=== PATIENT | male | born 1940 | race Caucasian/White ===

== ENCOUNTER → 2019-03-08 10:32 | Outpatient (CLI) | payer MEDICARE, OTHER, SELFPAY ==
--- NOTE | 2019-03-08 | DI.RAD.S_ITS ---
PROCEDURE: XR CHEST 2V INDICATIONS: Atherosclerotic heart disease of [place] coronary artery with TECHNIQUE: 2 views of the chest were acquired. COMPARISON: None. FINDINGS: Surgical changes and devices: None. Lungs and pleura: Lungs are abnormal with an interstitial prominence suggestive of prior smoking history. There is asymmetric increased radiodensity at the middle and lower thirds of the left hilum area, possibly a mass. No pleural effusions or pneumothorax. Mediastinum: Mediastinal contours are normal. Heart size is normal. Bones and chest wall: No suspicious bony abnormalities. Soft tissues appear unremarkable. IMPRESSION: Reduced inspiratory volume, interstitial prominence perhaps reflects a long-standing smoking history. Possible mass lesion causing increased focal radiodensity superimposed on the middle and lower thirds of the left hilum and mediastinal margin. No old comparison films are available for review and they would be very helpful if they exist to obtain for review unless CT scan at this time is clinically chosen for followup. Dictated by: Poli De La Cruz M.D. on 03/08/2019 at 11:05 Approved by: Poli De La Cruz M.D. on 03/08/2019 at 11:06
== END ==
PROVIDERS: PCP Internal Medicine; Visit Provider Internal Medicine
DX: I25.10 Atherosclerotic heart disease of native coronary artery without angina pectoris (principal)
CPT/HCPCS: 71046

== ENCOUNTER → 2019-03-14 10:54 | Outpatient (CLI) | payer MEDICARE, OTHER, SELFPAY ==
--- NOTE | 2019-03-14 11:35 | DI.CT.S_ITS ---
PROCEDURE: CT CHEST WO CON INDICATIONS: Abnormal findings on diagnostic imaging TECHNIQUE: Noncontrast 5 mm thick sections acquired from the pulmonary apices to the posterior costophrenic angles. 7 mm thick coronal and sagittal MIP reformats were then acquired. For radiation dose reduction, the following was used: automated exposure control, adjustment of mA and/or kV according to patient size. COMPARISON: [facility], , XR CHEST 2V, 03/08/2019, 10:38. FINDINGS: Image quality: Excellent. Lungs and pleura: Focal interstitial prominence with pleural irregularity can be seen involving the medial lingula. Mild bronchiectasis can be seen at this site. There is also a prominent pericardial fat-pad seen within this region. No pulmonary nodules or suspicious mass lesions are detected. No pleural effusions or pneumothorax. Central and peripheral airways are patent and normal in caliber. Mediastinum: Heart size is normal. Coronary artery calcifications are seen. No pericardial effusion. No mediastinal adenopathy by size criteria. Thoracic aorta and central pulmonary arteries are normal in size. Esophagus is normal in caliber. No hiatal hernia. Bones and chest wall: No suspicious bony lesions. Age-appropriate bony degenerative changes are seen. Accentuated thoracic kyphosis is seen. No vertebral body compression fractures. No axillary or supraclavicular adenopathy by size criteria. Thyroid gland demonstrates no significant noncontrast abnormality. Abdomen: Visualized upper abdominal solid organs and bowel loops appear normal in the absence of contrast. IMPRESSION: Focal interstitial prominence with bronchiectasis can be seen involving the medial lingula, without mass lesions or suspicious pulmonary nodules. Prominent left pericardial fat pad. Incidental note is made of: Coronary artery calcification Dictated by: Nir Arriola M.D. on 03/14/2019 at 10:46 Approved by: Nir Arriola M.D. on 03/14/2019 at 10:49
== END ==
PROVIDERS: PCP Internal Medicine; Visit Provider Internal Medicine
DX: R93.89 Abnormal findings on diagnostic imaging of other specified body structures (principal); J47.9 Bronchiectasis, uncomplicated; I25.10 Atherosclerotic heart disease of native coronary artery without angina pectoris; E65 Localized adiposity
CPT/HCPCS: 71250

== ENCOUNTER → 2020-06-12 14:55 | Outpatient (ROUT) | payer MEDICARE, OTHER, SELFPAY ==
[2020-06-12 15:48] LABS: Hematocrit 36.8 % (41-53); Hemoglobin 12.2 g/dL (13.5-17.5); Mean Corpuscular HGB Conc 33.2 % (30-36); Mean Corpuscular Hemoglobin 29.1 PG (26-34); Mean Corpuscular Volume 87.7 fL (80-100); Platelet Count 162 X10^3/uL (150-400); Red Cell Distribution Width 14.8 % (11.6-14.8); White Blood Cell Count 5.3 X10^3/uL (4.5-11.0)
[2020-06-12 16:02] LABS: Neutrophils Absolute Manual 3339 /uL (3000-5900); RBC Morphology Normal Morphology; Total Cells Counted 100
[2020-06-12 16:33] LABS: Aspartate Aminotransferase 22 IU/L (17-59); BUN Creatinine Ratio 18.8 (6-22); Blood Urea Nitrogen 28 mg/dL (9-20); Calcium 8.7 mg/dL (8.4-10.2); Carbon Dioxide 23 mmol/L (22-32); Chloride 105 mmol/L (98-107); Cholesterol 106 mg/dL (140-199); Estimated Glomerular Filt Rate 45.3 mL/min (>60); Glucose 84 mg/dL (80-110); HDL Cholesterol 45 mg/dL (40-60); HEMOLYSIS < 15 (0-50); LDL Cholesterol Calculated 38 mg/dL (<100); Potassium 4.7 mmol/L (3.4-5.1); Sodium 137 mmol/L (137-145); Triglycerides 115 mg/dL (35-150)
== END ==
PROVIDERS: PCP Internal Medicine; Visit Provider Internal Medicine
DX: N18.9 Chronic kidney disease, unspecified (principal); I10 Essential (primary) hypertension; E78.2 Mixed hyperlipidemia
CPT/HCPCS: 80048; 80061; 84450; 85025

== ENCOUNTER → 2020-12-11 14:53 | Outpatient (ROUT) | payer MEDICARE, OTHER, SELFPAY ==
[2020-12-11 15:11] LABS: Add Manual Diff / Slide Review NO; Basophils Absolute Auto 100 /uL (0-100); Basophils Percent Auto 0.9 % (0-2); Eosinophils Absolute Auto 0 /uL (0-450); Hematocrit 37.2 % (41-53); Hemoglobin 12.6 g/dL (13.5-17.5); Lymphocytes Absolute Auto 1500 /uL (1100-4500); Lymphocytes Percent Auto 21.9 % (25-40); Mean Corpuscular HGB Conc 33.7 % (30-36); Mean Corpuscular Hemoglobin 28.9 PG (26-34); Mean Corpuscular Volume 85.8 fL (80-100); Monocytes Absolute Auto 500 /uL (0-900); Monocytes Percent Auto 7.4 % (3-14); Neutrophils Absolute Auto 4900 /uL (1500-7000); Neutrophils Percent Auto 69.8 % (50-75); Platelet Count 236 X10^3/uL (150-400); Red Blood Cell Count 4.34 X10^6/uL (4.5-5.9); Red Cell Distribution Width 15.4 % (11.6-14.8)
[2020-12-11 15:22] LABS: HEMOLYSIS < 15 (0-50); Iron 71 ug/dL (49-181)
[2020-12-11 15:25] LABS: BUN Creatinine Ratio 21.4 (6-22); Blood Urea Nitrogen 27 mg/dL (9-20); Calcium 8.8 mg/dL (8.4-10.2); Carbon Dioxide 24 mmol/L (22-32); Chloride 104 mmol/L (98-107); Cholesterol 109 mg/dL (140-199); Estimated Glomerular Filt Rate 54.9 mL/min (>60); Glucose 87 mg/dL (80-110); HDL Cholesterol 39 mg/dL (40-60); HEMOLYSIS < 15 (0-50); LDL Cholesterol Calculated 48 mg/dL (<100); Phosphorous 2.8 mg/dL (2.3-3.7); Potassium 4.9 mmol/L (3.4-5.1); Sodium 136 mmol/L (137-145); Triglycerides 110 mg/dL (35-150)
[2020-12-11 15:29] LABS: Hemoglobin A1C% w Est Avg Glu 6.1 % (4.0-6.0)
[2020-12-11 15:34] LABS: Percent Iron Saturation 21 % (20-50); Total Iron Binding Capacity 339 ug/dL (261-462); Transferrin 254 mg/dL (206-381)
[2020-12-11 15:59] LABS: Ferritin 25 ng/mL (18-464)
[2020-12-12 08:10] LABS: Parathyroid Hormone Int 53 pg/mL (15-65)
== END ==
PROVIDERS: PCP Internal Medicine; Visit Provider Internal Medicine
DX: N18.30 Chronic kidney disease, stage 3 unspecified (principal); E08.8 Diabetes mellitus due to underlying condition with unspecified complications
CPT/HCPCS: 80048; 80061; 82728; 83036; 83540; 83550; 83970; 84100; 85025

== ENCOUNTER → 2022-09-07 16:47 | Outpatient (CLI) | payer MEDICARE, OTHER, SELFPAY ==
[2022-09-07 17:37] LABS: Hematocrit 38.5 % (41-53); Hemoglobin 12.6 g/dL (13.5-17.5); Mean Corpuscular HGB Conc 32.8 % (30-36); Mean Corpuscular Hemoglobin 28.7 PG (26-34); Mean Corpuscular Volume 87.6 fL (80-100); Platelet Count 235 X10^3/uL (150-400); Red Cell Distribution Width 15.3 % (11.6-14.8); White Blood Cell Count 6.3 X10^3/uL (4.5-11.0)
[2022-09-07 18:14] LABS: Alanine Aminotransferase 19 IU/L (<50); Albumin Globulin Ratio 1.2 (1.0-2.8); Alkaline Phosphatase 60 U/L (38-126); Aspartate Aminotransferase 25 IU/L (17-59); BUN Creatinine Ratio 17.4 (6-22); Bilirubin Total 0.3 mg/dL (0.2-1.3); Blood Urea Nitrogen 27 mg/dL (9-20); Calcium 8.8 mg/dL (8.4-10.2); Carbon Dioxide 25 mmol/L (22-32); Chloride 105 mmol/L (98-107); Cholesterol 136 mg/dL (140-199); Estimated Glomerular Filt Rate 44 mL/min (>60); Globulin 3.3 g/dL (1.7-4.1); Glucose 82 mg/dL (80-110); HDL Cholesterol 39 mg/dL (40-60); HEMOLYSIS < 15 (0-50); Hemoglobin A1C% w Est Avg Glu 6.1 % (4.0-6.0); LDL Cholesterol Calculated 74 mg/dL (<100); Potassium 4.6 mmol/L (3.4-5.1); Sodium 138 mmol/L (137-145); Total Protein 7.3 g/dL (6.3-8.2); Triglycerides 113 mg/dL (35-150)
[2022-09-07 18:51] LABS: Creatinine Urine Random 304.5 mg/dL
[2022-09-07 18:56] LABS: Microalbumi Creatinin Ratio Ur 10.1 ug/mg CR (<30); Microalbumin Urine Random 3.1 mg/dL (0-1.6)
== END ==
PROVIDERS: PCP Internal Medicine; Referring Provider Internal Medicine; Visit Provider Internal Medicine
DX: E11.21 Type 2 diabetes mellitus with diabetic nephropathy (principal); E78.2 Mixed hyperlipidemia; I10 Essential (primary) hypertension; I25.10 Atherosclerotic heart disease of native coronary artery without angina pectoris; N18.31 Chronic kidney disease, stage 3a
CPT/HCPCS: 36415; 80053; 80061; 82043; 82570; 83036; 84443; 85027

== ENCOUNTER → 2022-12-10 10:48 | Outpatient (CLI) | payer MEDICARE, OTHER, SELFPAY ==
[2022-12-10 12:02] LABS: Hematocrit 36.5 % (41-53); Hemoglobin 12.3 g/dL (13.5-17.5); Mean Corpuscular HGB Conc 33.6 % (30-36); Mean Corpuscular Volume 86.1 fL (80-100); Platelet Count 192 X10^3/uL (150-400); Red Blood Cell Count 4.24 X10^6/uL (4.5-5.9); Red Cell Distribution Width 14.1 % (11.6-14.8)
[2022-12-10 12:12] LABS: BUN Creatinine Ratio 14.6 (6-22); Blood Urea Nitrogen 21 mg/dL (9-20); Calcium 8.6 mg/dL (8.4-10.2); Carbon Dioxide 26 mmol/L (22-32); Chloride 105 mmol/L (98-107); Estimated Glomerular Filt Rate 48 mL/min (>60); Glucose 81 mg/dL (80-110); HEMOLYSIS < 15 (0-50); Potassium 5.1 mmol/L (3.4-5.1); Sodium 137 mmol/L (137-145)
[2022-12-10 12:14] LABS: Hemoglobin A1C% w Est Avg Glu 5.9 % (4.0-6.0)
== END ==
PROVIDERS: PCP Internal Medicine; Referring Provider Internal Medicine; Visit Provider Internal Medicine
DX: E11.21 Type 2 diabetes mellitus with diabetic nephropathy (principal); I10 Essential (primary) hypertension; N18.31 Chronic kidney disease, stage 3a
CPT/HCPCS: 36415; 80048; 83036; 85027

== ENCOUNTER → 2023-09-15 13:26 | Outpatient (CLI) | payer MEDICARE, OTHER, SELFPAY ==
[2023-09-15 17:30] LABS: Creatinine Urine Random 138.1 mg/dL
[2023-09-15 17:45] LABS: Microalbumin Urine Random < 0.6 mg/dL (0-1.6)
[2023-09-15 20:21] LABS: Aspartate Aminotransferase 25 IU/L (17-59); BUN Creatinine Ratio 15.9 (6-22); Blood Urea Nitrogen 25 mg/dL (9-20); Calcium 9.3 mg/dL (8.4-10.2); Carbon Dioxide 26 mmol/L (22-32); Chloride 103 mmol/L (98-107); Cholesterol 120 mg/dL (140-199); Estimated Glomerular Filt Rate 43 mL/min (>60); Glucose 96 mg/dL (80-110); HDL Cholesterol 39 mg/dL (40-60); HEMOLYSIS < 15 (0-50); LDL Cholesterol Calculated 61 mg/dL (<100); Potassium 4.9 mmol/L (3.4-5.1); Sodium 136 mmol/L (137-145); Triglycerides 101 mg/dL (35-150)
== END ==
PROVIDERS: PCP Internal Medicine; Referring Provider Internal Medicine; Visit Provider Internal Medicine
DX: I25.10 Atherosclerotic heart disease of native coronary artery without angina pectoris (principal); E11.21 Type 2 diabetes mellitus with diabetic nephropathy; N18.31 Chronic kidney disease, stage 3a
CPT/HCPCS: 36415; 80048; 80061; 82043; 82570; 83036; 84450

== ENCOUNTER 2023-09-21 15:04 | Emergency (ER) | payer MEDICARE, OTHER, SELFPAY ==
[2023-09-21] VITALS (33 sets, daily range): BP systolic 159–235; BP diastolic 62–95; PULSE 35–75; RESP 13–36; TEMP 36.3; O2SAT 95–98; BMI 24.3
--- NOTE | 2023-09-21 15:09 | DI.RAD.S_ITS ---
PROCEDURE: XR CHEST 1V INDICATIONS: heart block TECHNIQUE: One view of the chest was acquired. COMPARISON: [facility], CR, XR CHEST 2V, 03/08/2019, 10:38. FINDINGS: Surgical changes and devices: None. Lungs and pleura: There is moderate diffuse reticulonodular pulmonary opacity. No pleural effusions or pneumothorax. Mediastinum: Mediastinal contours appear normal. Heart size is enlarged. Bones and chest wall: No suspicious bony lesions. Overlying soft tissues appear unremarkable. IMPRESSION: Moderate bilateral edema versus pneumonia. Dictated by: Concepcion Lion M.D. on 09/21/2023 at 16:17 Approved by: Concepcion Lion M.D. on 09/21/2023 at 16:18
[2023-09-21 15:28] LABS: Add Manual Diff / Slide Review NO; Basophils Absolute Auto 0 /uL (0-100); Basophils Percent Auto 0.7 % (0-2); Eosinophils Absolute Auto 0 /uL (0-450); Eosinophils Percent Auto 0.1 % (2-4); Hematocrit 39.1 % (41-53); Lymphocytes Absolute Auto 1400 /uL (1100-4500); Lymphocytes Percent Auto 21.2 % (25-40); Mean Corpuscular HGB Conc 33.4 % (30-36); Mean Corpuscular Hemoglobin 29.5 PG (26-34); Mean Corpuscular Volume 88.2 fL (80-100); Monocytes Absolute Auto 500 /uL (0-900); Monocytes Percent Auto 7.2 % (3-14); Neutrophils Absolute Auto 4600 /uL (1500-7000); Neutrophils Percent Auto 70.8 % (50-75); Platelet Count 199 X10^3/uL (150-400); Red Blood Cell Count 4.43 X10^6/uL (4.5-5.9); Red Cell Distribution Width 14.2 % (11.6-14.8); White Blood Cell Count 6.5 X10^3/uL (4.5-11.0)
--- NOTE | 2023-09-21 15:30 | PC.NURSE ---
Pt sent from primary office of 3rd degree heart block, lowest reading on monitor is 37. Pt denies any symptoms of low heart rate, Denies dizziness/SOB/ Chest pain. Pt is A&Ox4
--- NOTE | 2023-09-21 15:33 | ED_ITS ---
HPI - General Adult <Ana Paula Tracy DO - Last Filed: 10/01/23 07:33> General Chief complaint: Arrhythmia/Palpitations Stated complaint: third degree complete heart block per primary care Time Seen by Provider: 09/21/23 15:09 Source: patient and other Mode of arrival: Wheelchair History of Present Illness HPI narrative: This is a 83-year-old male with history of hypertension, diabetes, dyslipidemia, known heart block chronic kidney disease stage IIIA with complaint of third- degree heart block. Patient states he does not have any symptoms he has been told he has a low heartbeat for a long time and has been told by his physician at some point he would probably likely need a pacemaker. He would a regular follow-up appointment today with his primary care they had an EKG and was found to be in what appears to be third-degree heart block with patient's primary care Dr. Pool. He spoke with Dr. Saldivar with electrophysiology who asked patient to come to the ER for evaluation and likely transfer for pacemaker. Patient does not know the names of all his medications but states he does take them regularly. He states he is never had any cardiac interventions other than quality assurance monitor chassis. He is never had heart caths, ablations. States prior surgeries include knee surgery and back surgery. No known drug allergies. No tobacco, no alcohol, no recreational drugs. He is accompanied by his . He is DNR/DNI with limited interventions. He states he would be open to being paced for a brief period of time if necessary. Related Data Previous Rx's Medication Instructions Recorded cholecalciferol (vitamin D3) 50 50 mcg PO DAILY #1 cap 09/11/22 mcg (2,000 unit) capsule lisinopril 20 mg tablet 20 mg PO DAILY #90 tabs 09/11/22 vitamin B complex (B 1 tab PO DAILY #1 tab 09/11/22 Complex-Vitamin B12 tablet) aspirin 81 mg tablet,delayed 81 mg PO DAILY #90 tabs 04/21/23 release hydrochlorothiazide 25 mg tablet 25 mg PO DAILY #90 tabs 06/07/23 metformin 500 mg tablet 500 mg PO BID #180 tabs 06/07/23 simvastatin 40 mg tablet 40 mg PO DAILY #90 tabs 06/07/23 terazosin 2 mg capsule 2 mg PO DAILY #90 caps 06/07/23 amlodipine 5 mg tablet 5 mg PO DAILY #90 tabs 09/27/23 Allergies Allergy/AdvReac Type Severity Reaction Status Date / Time No Known Drug Allergies Allergy Verified 09/27/23 09:17 Review of Systems <Ana Paula Tracy DO - Last Filed: 10/01/23 07:33> Review of Systems ROS Unobtainable: All systems reviewed & are unremarkable except as noted in HPI and below Patient History <Ana Paula Tracy DO - Last Filed: 10/01/23 07:33> Medical History (Updated 09/27/23 @ 09:51 by Migel Pool MD) Bradycardia Coronary artery disease BPH w urinary obs/LUTS Stage 3a chronic kidney disease (CKD) Mixed hyperlipidemia Essential hypertension Type 2 diabetes mellitus with diabetic nephropathy Surgical History (Updated 09/27/23 @ 09:51 by Migel Pool MD) Status post biventricular pacemaker Social History details: (Jonah), retired [place] Smoking Status: Never smoker Smoking Status: Never smoker Substance Use Type: does not use Exam <Ana Paula Tracy DO - Last Filed: 10/01/23 07:33> Narrative Exam Narrative: GENERAL: Alert and oriented x three, alert, well-appearing elderly male in no mild distress. HEENT: Head normocephalic, atraumatic, EOMI, pupils reactive, face symmetric, moist mucous membranes NECK: Supple, full range of motion CARDIOVASCULAR: Bradycardic but regular rate and rhythm without murmurs, rubs or gallops. No JVD. No swelling bilateral lower extremities. RESPIRATORY: Breath sounds equal bilaterally, no wheezes rales or rhonchi. ABDOMEN: Soft, nontender. Normoactive bowel sounds all 4 quadrants. No guarding or rebound, rigidity, no mass : No CVA tenderness EXTREMITIES: Normal range of motion, no clubbing or edema. Neurovascularly intact NEUROLOGICAL: Cranial nerves II through XII grossly intact. Moving all extremities SKIN: Warm, dry, no petechiae, no rashes or lesions. Initial Vital Signs Initial Vital Signs: Vital Signs Temperature 97.3 F L 09/21/23 15:06 Pulse Rate 41 L 09/21/23 15:06 Respiratory Rate 16 09/21/23 15:06 Blood Pressure 186/62 H 09/21/23 15:06 Pulse Oximetry 97 09/21/23 15:06 Oxygen Delivery Method Room Air 09/21/23 15:06 <Baltazar Bernal, DO - Last Filed: 09/21/23 23:07> Initial Vital Signs Initial Vital Signs: Vital Signs Temperature 97.3 F L 09/21/23 15:06 Pulse Rate 41 L 09/21/23 15:06 Respiratory Rate 16 09/21/23 15:06 Blood Pressure 186/62 H 09/21/23 15:06 Pulse Oximetry 97 09/21/23 15:06 Oxygen Delivery Method Room Air 09/21/23 15:06 Course <Ana Paula Tracy, DO - Last Filed: 10/01/23 07:33> Orders Ordered: Discontinued Medications Magnesium Sulfate (Magnesium Sulfate) 2 gm in 50 mls @ 150 mls/hr IV NOW ONE Stop: 09/21/23 16:02 Last Infusion: 09/21/23 16:27 Dose: Infused Documented By: SANDEEP Co-signed By: ROMEO Admin: 09/21/23 15:51 Dose: 150 mls/hr Documented By: SANDEEP Co-signed By: ANTONIO Vital Signs Vital signs: Vital Signs - 8 hr 09/21/23 15:06 09/21/23 15:11 09/21/23 15:30 Temperature 97.3 F L Pulse Rate 41 L 42 L 40 L Respiratory Rate 16 23 32 H Blood Pressure 186/62 H Pulse Oximetry 97 97 97 Oxygen Delivery Method Room Air 09/21/23 15:31 09/21/23 15:31 09/21/23 16:00 Temperature Pulse Rate 37 L 35 L Respiratory Rate 20 21 Blood Pressure 235/95 H Pulse Oximetry 97 97 Oxygen Delivery Method 09/21/23 16:01 09/21/23 16:01 09/21/23 16:30 Temperature Pulse Rate 35 L Respiratory Rate 25 H 24 Blood Pressure 208/78 H Pulse Oximetry 96 97 Oxygen Delivery Method 09/21/23 16:31 09/21/23 16:31 09/21/23 17:00 Temperature Pulse Rate Respiratory Rate 18 Blood Pressure 194/80 H Pulse Oximetry 98 97 Oxygen Delivery Method 09/21/23 17:01 09/21/23 17:01 09/21/23 17:30 Temperature Pulse Rate 38 L Respiratory Rate 16 25 H Blood Pressure 209/86 H Pulse Oximetry 97 98 Oxygen Delivery Method 09/21/23 17:31 09/21/23 17:31 09/21/23 18:00 Temperature Pulse Rate 37 L 38 L Respiratory Rate 24 27 H Blood Pressure 214/89 H Pulse Oximetry 98 97 Oxygen Delivery Method 09/21/23 18:01 09/21/23 18:01 09/21/23 18:30 Temperature Pulse Rate 36 L 39 L Respiratory Rate 26 H 17 Blood Pressure 193/79 H Pulse Oximetry 96 97 Oxygen Delivery Method 09/21/23 19:00 09/21/23 19:02 09/21/23 19:02 Temperature Pulse Rate 40 L 39 L Respiratory Rate 23 23 Blood Pressure 159/77 H Pulse Oximetry 97 96 Oxygen Delivery Method 09/21/23 19:30 09/21/23 19:31 09/21/23 19:31 Temperature Pulse Rate 37 L 40 L Respiratory Rate 22 23 Blood Pressure 199/86 H Pulse Oximetry 96 95 Oxygen Delivery Method Room Air 09/21/23 20:00 09/21/23 20:01 09/21/23 20:01 Temperature Pulse Rate 36 L 35 L Respiratory Rate 15 13 Blood Pressure 168/75 H Pulse Oximetry Oxygen Delivery Method 09/21/23 20:30 09/21/23 20:31 09/21/23 20:31 Temperature Pulse Rate 36 L 35 L Respiratory Rate 20 20 Blood Pressure 216/89 H Pulse Oximetry Oxygen Delivery Method 09/21/23 21:00 09/21/23 21:01 09/21/23 21:01 Temperature Pulse Rate 38 L 40 L Respiratory Rate 31 H 36 H Blood Pressure 199/89 H Pulse Oximetry Oxygen Delivery Method <Baltazar Bernal, - Last Filed: 09/21/23 23:07> Orders Ordered: Discontinued Medications Magnesium Sulfate (Magnesium Sulfate) 2 gm in 50 mls @ 150 mls/hr IV NOW ONE Stop: 09/21/23 16:02 Last Infusion: 09/21/23 16:27 Dose: Infused Documented By: SANDEEP Co-signed By: ROMEO Admin: 09/21/23 15:51 Dose: 150 mls/hr Documented By: SANDEEP Co-signed By: ANTONIO Vital Signs Vital signs: Vital Signs - 8 hr 09/21/23 15:06 09/21/23 15:11 09/21/23 15:30 Temperature 97.3 F L Pulse Rate 41 L 42 L 40 L Respiratory Rate 16 23 32 H Blood Pressure 186/62 H Pulse Oximetry 97 97 97 Oxygen Delivery Method Room Air 09/21/23 15:31 09/21/23 15:31 09/21/23 16:00 Temperature Pulse Rate 37 L 35 L Respiratory Rate 20 21 Blood Pressure 235/95 H Pulse Oximetry 97 97 Oxygen Delivery Method 09/21/23 16:01 09/21/23 16:01 09/21/23 16:30 Temperature Pulse Rate 35 L Respiratory Rate 25 H 24 Blood Pressure 208/78 H Pulse Oximetry 96 97 Oxygen Delivery Method 09/21/23 16:31 09/21/23 16:31 09/21/23 17:00 Temperature Pulse Rate Respiratory Rate 18 Blood Pressure 194/80 H Pulse Oximetry 98 97 Oxygen Delivery Method 09/21/23 17:01 09/21/23 17:01 09/21/23 17:30 Temperature Pulse Rate 38 L Respiratory Rate 16 25 H Blood Pressure 209/86 H Pulse Oximetry 97 98 Oxygen Delivery Method 09/21/23 17:31 09/21/23 17:31 09/21/23 18:00 Temperature Pulse Rate 37 L 38 L Respiratory Rate 24 27 H Blood Pressure 214/89 H Pulse Oximetry 98 97 Oxygen Delivery Method 09/21/23 18:01 09/21/23 18:01 09/21/23 18:30 Temperature Pulse Rate 36 L 39 L Respiratory Rate 26 H 17 Blood Pressure 193/79 H Pulse Oximetry 96 97 Oxygen Delivery Method 09/21/23 19:00 09/21/23 19:02 09/21/23 19:02 Temperature Pulse Rate 40 L 39 L Respiratory Rate 23 23 Blood Pressure 159/77 H Pulse Oximetry 97 96 Oxygen Delivery Method 09/21/23 19:30 09/21/23 19:31 09/21/23 19:31 Temperature Pulse Rate 37 L 40 L Respiratory Rate 22 23 Blood Pressure 199/86 H Pulse Oximetry 96 95 Oxygen Delivery Method Room Air 09/21/23 20:00 09/21/23 20:01 09/21/23 20:01 Temperature Pulse Rate 36 L 35 L Respiratory Rate 15 13 Blood Pressure 168/75 H Pulse Oximetry Oxygen Delivery Method 09/21/23 20:30 09/21/23 20:31 09/21/23 20:31 Temperature Pulse Rate 36 L 35 L Respiratory Rate 20 20 Blood Pressure 216/89 H Pulse Oximetry Oxygen Delivery Method 09/21/23 21:00 09/21/23 21:01 09/21/23 21:01 Temperature Pulse Rate 38 L 40 L Respiratory Rate 31 H 36 H Blood Pressure 199/89 H Pulse Oximetry Oxygen Delivery Method Medical Decision Making <Ana Paula Tracy, - Last Filed: 10/01/23 07:33> Lab Data 09/21/23 15:15 09/21/23 15:15 Labs: Lab Results 09/21/23 Range/Units 15:15 WBC 6.5 (4.5-11.0) X10^3/uL RBC 4.43 L (4.5-5.9) X10^6/uL Hgb 13.0 L (13.5-17.5) g/dL Hct 39.1 L (41-53) % MCV 88.2 (80-100) fL MCH 29.5 (26-34) PG MCHC 33.4 (30-36) % RDW 14.2 (11.6-14.8) % Plt Count 199 (150-400) X10^3/uL Neut % (Auto) 70.8 (50-75) % Lymph % (Auto) 21.2 L (25-40) % Dauphin % (Auto) 7.2 (3-14) % Eos % (Auto) 0.1 L (2-4) % Baso % (Auto) 0.7 (0-2) % Neut # (Auto) 4600 (7409-8717) /uL Lymph # (Auto) 1400 (0521-0433) /uL Da[place]hin # (Auto) 500 (0-900) /uL Eos # (Auto) 0 (0-450) /uL Baso # (Auto) 0 (0-100) /uL PT 13.4 H (9.4-12.5) SECONDS INR 1.2 (0.9-1.3) APTT 25 L (25.1-36.5) SECONDS Sodium 137 (137-145) mmol/L Potassium 5.0 (3.4-5.1) mmol/L Chloride 104 (98-107) mmol/L Carbon Dioxide 26 (22-32) mmol/L BUN 22 H (9-20) mg/dL Creatinine 1.49 H (0.66-1.25) mg/dL Estimated GFR 46 L (>60) mL/min BUN/Creatinine Ratio 14.8 (6-22) Glucose 104 (80-110) mg/dL Calcium 9.1 (8.4-10.2) mg/dL Magnesium 1.2 L (1.6-2.3) mg/dL Total Bilirubin 0.7 (0.2-1.3) mg/dL AST 32 (17-59) IU/L ALT 17 (<50) IU/L Alkaline Phosphatase 46 (38-126) U/L Total Creatine Kinase 107 (55-170) U/L Troponin I 0.020 (0.01-0.034) ng/mL NT-Pro-B Natriuret Pep 558 H (<450) pg/mL Total Protein 7.9 (6.3-8.2) g/dL Albumin 4.0 (3.5-5.0) g/dL Globulin 3.9 (1.7-4.1) g/dL Albumin/Globulin Ratio 1.0 (1.0-2.8) Lipase 66 (23-300) U/L Imaging Data Chest x-ray: Radiologist's Impression: Luis Combs??83??M??1940 ? Allergy/Adv: No Known Drug Allergies Close Chest X-Ray (Signed) AmishaConcepcion - 09/21/[address] (Signed) [place] j[place] - 03/14/19 Chest X-Ray (Signed) Poli De La Cruz - 03/08/19 Launch?Image [address] [address] XRay Report Signed Patient: Luis Combs MR#: [id number] : 1940 Acct:[id number] Age/Sex: 83 / M Date of Service: 09/21/23 Loc: ED Accession Number: [id number] Procedure: XR chest 1V Ordering Provider: Ana Paula Tracy D.O. PROCEDURE: XR CHEST 1V INDICATIONS: heart block TECHNIQUE: One view of the chest was acquired. COMPARISON: [facility], , XR CHEST 2V, 03/08/2019, 10:38. FINDINGS: Surgical changes and devices: None. Lungs and pleura: There is moderate diffuse reticulonodular pulmonary opacity. No pleural effusions or pneumothorax. Mediastinum: Mediastinal contours appear normal. Heart size is enlarged. Bones and chest wall: No suspicious bony lesions. Overlying soft tissues appear unremarkable. IMPRESSION: Moderate bilateral edema versus pneumonia. Dictated by: Concepcion Lion M.D. on 09/21/2023 at 16:17 Approved by: Concepcion Lion M.D. on 09/21/2023 at 16:18 ECG Data Attestation: I personally reviewed and interpreted this ECG as follows: Interpretation: EKG from outpatient office shows appears to be third-degree heart block. Rate of 35 with a QRS of 74. QTC of 357 Repeat EKG shows rate of 40 VA 214 QRS of 92 QTC of 381. Does appear to have a third-degree heart block. Patient has P waves marching throughout. MDM Narrative Medical decision making narrative: 83-year-old male with known history of heart block, patient is on amlodipine but no other potential antiarrhythmic medications. Patient does appear to have a third-degree heart block on EKG and repeat EKG here in the department. Patient has had labs CBC shows a hemoglobin of 13 consistent with priors, white count of 6.5 platelets of 199. Patient's creatinine is 1.49 consistent with priors and history of CKD 3. Electrolytes including sodium potassium chloride CO2 are all appropriate, glucose is 104. Potassium is 5. Mag slightly low at 1.2 will be replaced IV. Troponin is 0.020, BNP is 558. Chest x-ray : Prelim appears similar to prior from 03/08/2019 which showed interstitial prominence, with asymmetric increased radiodensity middle and lower thirds of the left hilum. Patient did have a CT in March of 2019 after this chest x-ray which showed focal interstitial prominence with bronchiectasis involving medial lingula without mass lesions or suspicious pulmonary nodules. Today's chest x-ray appears similar. Discussed with patient he is DNR/DNI but open to pacing for a brief period. He is open to possible transfer for pacemaker placement. Dr. Saldivar, electrophysiology [facility]. Would like patient to be transferred for pacemaker placement. Would ask for echo if patient is sitting awhile before transfer. Reviewed labs his Mag was low at 1.2 we will replace this. Reviewed his medications, past medical history, labs today as well as workup and chronic kidney disease. Would have a speak with hospitalist for transfer but accepts for pacemaker placement. [facility], no beds available this evening but wait listed. Calls out to multiple facilities for potential transfer. Awaiting call back. Patient signed out to Dr. Bernal so far patient has been hemodynamically stable. Patient updated current plan. He is agreeable to stay until bed opens up. Patient signed out to Dr. Bernal while awaiting transfer. Dr bernal: Received turned over. Review patient's history and physical and workup up to this point. Patient is not hypotensive. Is bradycardic. Did ambulate to the bathroom. His magnesium has been replaced. I did repeat an EKG which showed what appears to be a sinus rhythm with a 2-1 second-degree AV block. I reviewed the EKG from his primary care doctor's office which I agree does appear to be a third-degree heart block with a narrow QRS complex of 74 milliseconds. Patient has not required any blood pressure support nor pacing support. I did discuss the case with Dr. Turcios hospitalist that Anna shah who accepts the patient for transfer. Patient is stable for transport. <Baltazar Bernal, DO - Last Filed: 09/21/23 23:07> Lab Data Labs: Lab Results 09/21/23 Range/Units 15:15 WBC 6.5 (4.5-11.0) X10^3/uL RBC 4.43 L (4.5-5.9) X10^6/uL Hgb 13.0 L (13.5-17.5) g/dL Hct 39.1 L (41-53) % MCV 88.2 (80-100) fL MCH 29.5 (26-34) PG MCHC 33.4 (30-36) % RDW 14.2 (11.6-14.8) % Plt Count 199 (150-400) X10^3/uL Neut % (Auto) 70.8 (50-75) % Lymph % (Auto) 21.2 L (25-40) % Dauphin % (Auto) 7.2 (3-14) % Eos % (Auto) 0.1 L (2-4) % Baso % (Auto) 0.7 (0-2) % Neut # (Auto) 4600 (6153-0464) /uL Lymph # (Auto) 1400 (5051-1635) /uL Dauphin # (Auto) 500 (0-900) /uL Eos # (Auto) 0 (0-450) /uL Baso # (Auto) 0 (0-100) /uL PT 13.4 H (9.4-12.5) SECONDS INR 1.2 (0.9-1.3) APTT 25 L (25.1-36.5) SECONDS Sodium 137 (137-145) mmol/L Potassium 5.0 (3.4-5.1) mmol/L Chloride 104 (98-107) mmol/L Carbon Dioxide 26 (22-32) mmol/L BUN 22 H (9-20) mg/dL Creatinine 1.49 H (0.66-1.25) mg/dL Estimated GFR 46 L (>60) mL/min BUN/Creatinine Ratio 14.8 (6-22) Glucose 104 (80-110) mg/dL Calcium 9.1 (8.4-10.2) mg/dL Magnesium 1.2 L (1.6-2.3) mg/dL Total Bilirubin 0.7 (0.2-1.3) mg/dL AST 32 (17-59) IU/L ALT 17 (<50) IU/L Alkaline Phosphatase 46 (38-126) U/L Total Creatine Kinase 107 (55-170) U/L Troponin I 0.020 (0.01-0.034) ng/mL NT-Pro-B Natriuret Pep 558 H (<450) pg/mL Total Protein 7.9 (6.3-8.2) g/dL Albumin 4.0 (3.5-5.0) g/dL Globulin 3.9 (1.7-4.1) g/dL Albumin/Globulin Ratio 1.0 (1.0-2.8) Lipase 66 (23-300) U/L [facility] Narrative Medical decision making narrative: 83-year-old male with known history of heart block, patient is on amlodipine but no other potential antiarrhythmic medications. Patient does appear to have a third-degree heart block on EKG and repeat EKG here in the department. Patient has had labs CBC shows a hemoglobin of 13 consistent with priors, white count of 6.5 platelets of 199. Patient's creatinine is 1.49 consistent with priors and history of CKD 3. Electrolytes including sodium potassium chloride CO2 are all appropriate, glucose is 104. Potassium is 5. Mag slightly low at 1.2 will be replaced IV. Troponin is 0.020, BNP is 558. Chest x-ray : Prelim appears similar to prior from 03/08/2019 which showed interstitial prominence, with asymmetric increased radiodensity middle and lower thirds of the left hilum. Patient did have a CT in March of 2019 after this chest x-ray which showed focal interstitial prominence with bronchiectasis involving medial lingula without mass lesions or suspicious pulmonary nodules. Today's chest x-ray appears similar. Discussed with patient he is DNR/DNI but open to pacing for a brief period. He is open to possible transfer for pacemaker placement. Dr. Saldivar, electrophysiology [facility]. Would like patient to be transferred for pacemaker placement. Would ask for echo if patient is sitting awhile before transfer. Reviewed labs his Mag was low at 1.2 we will replace this. Reviewed his medications, past medical history, labs today as well as workup and chronic kidney disease. Would have a speak with hospitalist for transfer but accepts for pacemaker placement. [facility], no beds available this evening but wait listed. Calls out to multiple facilities for potential transfer. Awaiting call back. Patient signed out to Dr. Bernal so far patient has been hemodynamically stable. Patient updated current plan. He is agreeable to stay until bed opens up. Dr bernal: Received turned over. Review patient's history and physical and workup up to this point. Patient is not hypotensive. Is bradycardic. Did ambulate to the bathroom. His magnesium has been replaced. I did repeat an EKG which showed what appears to be a sinus rhythm with a 2-1 second-degree AV block. I reviewed the EKG from his primary care doctor's office which I agree does appear to be a third-degree heart block with a narrow QRS complex of 74 milliseconds. Patient has not required any blood pressure support nor pacing support. I did discuss the case with Dr. Turcios hospitalist that Anna shah who accepts the patient for transfer. Patient is stable for transport. Critical Care Time <Ana Paula Tracy, DO - Last Filed: 10/01/23 07:33> Critical Care Time Critical Care Time: Yes Total Critical Care Time: 35 Attestation: The high probability of a clinically significant, sudden or life threatening deterioration of the [cardiac ] system(s) required my full and direct attention, intervention and personal management. The aggregate critical care time was [] minutes. This time is in addition to time spent performing reported procedures but includes the following: [x] Data Review and interpretation [x] Patient assessment and monitoring of vital signs [x] Documentation [x] Medication orders and management <Baltazar DO Dolores - Last Filed: 09/21/23 23:07> Critical Care Time Attestation: The high probability of a clinically significant, sudden or life threatening deterioration of the [cardiac ] system(s) required my full and direct attention, intervention and personal management. The aggregate critical care time was [35] minutes. This time is in addition to time spent performing reported procedures but includes the following: [x] Data Review and interpretation [x] Patient assessment and monitoring of vital signs [x] Documentation [x] Medication orders and management Discharge Plan Departure Patient Disposition: [facility] Clinical Impression: Heart block AV third degree, Hypomagnesemia Prescriptions: No Action vitamin B complex [B Complex-Vitamin B12] Tablet 1 tab PO DAILY Qty: 1 0RF cholecalciferol (vitamin D3) 50 mcg (2,000 unit) capsule 50 mcg PO DAILY Qty: 1 0RF lisinopril 20 mg tablet 20 mg PO DAILY Qty: 90 3RF aspirin 81 mg tablet,delayed release (DR/EC) 81 mg PO DAILY Qty: 90 2RF amlodipine 5 mg tablet 5 mg PO DAILY Qty: 90 3RF metformin 500 mg tablet 500 mg PO BID Qty: 180 3RF terazosin 2 mg capsule 2 mg PO DAILY Qty: 90 3RF simvastatin 40 mg tablet 40 mg PO DAILY Qty: 90 3RF hydrochlorothiazide 25 mg tablet 25 mg PO DAILY Qty: 90 3RF Referrals: Migel Pool MD [Primary Care Provider] -
[2023-09-21 15:35] LABS: INR 1.2 (0.9-1.3); Prothrombin Time 13.4 SECONDS (9.4-12.5)
[2023-09-21 15:38] LABS: PTT Partial Thromboplastin Tim 25 SECONDS (25.1-36.5)
[2023-09-21 15:40] LABS: Alanine Aminotransferase 17 IU/L (<50); Alkaline Phosphatase 46 U/L (38-126); Aspartate Aminotransferase 32 IU/L (17-59); BUN Creatinine Ratio 14.8 (6-22); Bilirubin Total 0.7 mg/dL (0.2-1.3); Blood Urea Nitrogen 22 mg/dL (9-20); Calcium 9.1 mg/dL (8.4-10.2); Carbon Dioxide 26 mmol/L (22-32); Chloride 104 mmol/L (98-107); Creatine Kinase 107 U/L (55-170); Estimated Glomerular Filt Rate 46 mL/min (>60); Globulin 3.9 g/dL (1.7-4.1); Glucose 104 mg/dL (80-110); Lipase 66 U/L (23-300); Magnesium 1.2 mg/dL (1.6-2.3); Sodium 137 mmol/L (137-145); Total Protein 7.9 g/dL (6.3-8.2)
[2023-09-21 15:41] LABS: HEMOLYSIS 112 (0-50)
[2023-09-21 15:51] LABS: NT-proBNP (BNP-Adult 18+) 558 pg/mL (<450)
[2023-09-21] MEDS: MAGNESIUM SULFATE 2 GM/50 ML PIGGYBACK IV (15:51)
--- NOTE | 2023-09-21 19:52 | PC.NURSE ---
Pt denies any chest pain or dizziness, states has had a low hr for years without symptoms. Updated about wait for transfering.
--- NOTE | 2023-09-21 21:10 | PC.NURSE ---
Provider ok for patient to take home evening medications. Pt took Simvastatin 40mg, aspirin 81mg, metformin 500mg, vitamin b-12, vitamin d3 5000IU Provider had patient hold his amlodipine
[2023-09-22] VITALS: PULSE 36; RESP 22
== END 2023-09-22 00:07 | disposition short-term general hospital (02) ==
PROVIDERS: Emergency Medicine; Emergency Provider Emergency Medicine; PCP Internal Medicine
DX: I44.2 Atrioventricular block, complete (principal); E83.42 Hypomagnesemia
CPT/HCPCS: 71045; 80053; 82550; 83690; 83735; 83880; 84484; 85025; 85610; 85730; 93005; 93010; 96374; 99284; J3475

== ENCOUNTER → 2023-12-28 15:13 | Outpatient (CLI) | payer MEDICARE, OTHER, SELFPAY ==
[2023-12-28 15:45] LABS: Hemoglobin A1C% w Est Avg Glu 5.8 % (4.0-6.0)
[2023-12-28 15:57] LABS: BUN Creatinine Ratio 13.7 (6-22); Blood Urea Nitrogen 22 mg/dL (9-20); Calcium 8.8 mg/dL (8.4-10.2); Carbon Dioxide 24 mmol/L (22-32); Chloride 107 mmol/L (98-107); Estimated Glomerular Filt Rate 42 mL/min (>60); Glucose 124 mg/dL (80-110); HEMOLYSIS < 15 (0-50); Potassium 4.6 mmol/L (3.4-5.1); Sodium 138 mmol/L (137-145)
== END ==
PROVIDERS: PCP Internal Medicine; Referring Provider Internal Medicine; Visit Provider Internal Medicine
DX: E11.21 Type 2 diabetes mellitus with diabetic nephropathy (principal); N18.31 Chronic kidney disease, stage 3a
CPT/HCPCS: 36415; 80048; 83036

== ENCOUNTER → 2024-06-28 11:59 | Outpatient (CLI) | payer MEDICARE, OTHER, SELFPAY ==
[2024-06-28 13:15] LABS: Hematocrit 38.4 % (41-53); Hemoglobin 12.7 g/dL (13.5-17.5); Mean Corpuscular HGB Conc 33.1 % (30-36); Mean Corpuscular Volume 90.8 fL (80-100); Platelet Count 211 X10^3/uL (150-400); Red Blood Cell Count 4.22 X10^6/uL (4.5-5.9); Red Cell Distribution Width 14.6 % (11.6-14.8); White Blood Cell Count 7.2 X10^3/uL (4.5-11.0)
[2024-06-28 14:19] LABS: BUN Creatinine Ratio 11.2 (6-22); Blood Urea Nitrogen 20 mg/dL (9-20); Calcium 8.8 mg/dL (8.4-10.2); Carbon Dioxide 27 mmol/L (22-32); Chloride 105 mmol/L (98-107); Estimated Glomerular Filt Rate 37 mL/min (>60); Glucose 77 mg/dL (80-110); HEMOLYSIS < 15 (0-50); Potassium 4.8 mmol/L (3.4-5.1); Sodium 138 mmol/L (137-145)
[2024-06-28 14:23] LABS: Hemoglobin A1C% w Est Avg Glu 5.5 % (4.0-6.0)
== END ==
PROVIDERS: PCP Internal Medicine; Referring Provider Internal Medicine; Visit Provider Internal Medicine
DX: N18.31 Chronic kidney disease, stage 3a (principal); E11.21 Type 2 diabetes mellitus with diabetic nephropathy; I25.10 Atherosclerotic heart disease of native coronary artery without angina pectoris
CPT/HCPCS: 36415; 80048; 83036; 85027

== ENCOUNTER → 2025-03-13 16:14 | Outpatient (CLI) | payer MEDICARE, OTHER, SELFPAY ==
--- NOTE | 2025-03-13 16:24 | DI.RAD.S_ITS ---
PROCEDURE: XR CHEST 2V INDICATIONS: dyspnea on exertion TECHNIQUE: 2 views of the chest were acquired. COMPARISON: [facility], CR, XR CHEST 1V, 09/21/2023, 15:08. FINDINGS: [id number] bilateral diffuse peribronchial thickening with patchy lower lobe opacities left greater than right, more than expected for expiratory result. Bronchitis, bronchopneumonia, viral infection, asthma or other process should be considered. Follow-up is needed. Leadless pacemaker or cardiac monitoring device left lower hemithorax. Mild calcifications of the aortic arch. Moderate degenerative changes of the thoracic spine. Mildly prominent ashleigh, mild pulmonary vascular congestion and/or hilar lymph nodes. No pneumothorax, no pleural effusion, no lobar consolidation. Cardiopericardial silhouette within normal limits in size. IMPRESSION: [id number] peribronchial thickening and patchy opacities as discussed above. Follow-up suggested. If symptoms persist or worsen, CT chest could be performed. Dictated by: Alok Cha M.D. on 03/14/2025 at 16:46 Approved by: Alok Cha M.D. on 03/14/2025 at 16:49
[2025-03-13 16:54] LABS: Hematocrit 37.9 % (41-53); Hemoglobin 12.4 g/dL (13.5-17.5); Mean Corpuscular HGB Conc 32.7 % (30-36); Mean Corpuscular Hemoglobin 29.2 PG (26-34); Mean Corpuscular Volume 89.3 fL (80-100); Platelet Count 219 X10^3/uL (150-400); Red Blood Cell Count 4.24 X10^6/uL (4.5-5.9); Red Cell Distribution Width 14.3 % (11.6-14.8); White Blood Cell Count 7.4 X10^3/uL (4.5-11.0)
[2025-03-13 17:05] LABS: Hemoglobin A1C% w Est Avg Glu 5.5 % (4.0-6.0)
[2025-03-13 17:21] LABS: Aspartate Aminotransferase 26 IU/L (17-59); BUN Creatinine Ratio 16.5 (6-22); Blood Urea Nitrogen 30 mg/dL (9-20); Calcium 8.7 mg/dL (8.4-10.2); Carbon Dioxide 23 mmol/L (22-32); Chloride 104 mmol/L (98-107); Estimated Glomerular Filt Rate 36 mL/min (>60); Glucose 70 mg/dL (70-99); HEMOLYSIS < 15 (0-50); Potassium 4.9 mmol/L (3.4-5.1); Sodium 135 mmol/L (137-145)
[2025-03-13 19:46] LABS: Creatinine Urine Random 174.96 mg/dL
[2025-03-13 19:57] LABS: Microalbumin Urine Random < 0.6 mg/dL (0-1.6)
== END ==
LOC: LAB 16:15 → RAD 16:24
PROVIDERS: PCP Internal Medicine; Referring Provider Internal Medicine; Visit Provider Internal Medicine
DX: E78.2 Mixed hyperlipidemia (principal); E11.22 Type 2 diabetes mellitus with diabetic chronic kidney disease; E11.21 Type 2 diabetes mellitus with diabetic nephropathy; N18.31 Chronic kidney disease, stage 3a; R06.09 Other forms of dyspnea; I70.0 Atherosclerosis of aorta
CPT/HCPCS: 36415; 71046; 80048; 82043; 82570; 83036; 84450; 85027

== ENCOUNTER → 2025-03-28 14:06 | Outpatient (CLI) | payer MEDICARE, OTHER, SELFPAY ==
--- NOTE | 2025-03-28 14:15 | DI.CT.S_ITS ---
PROCEDURE: CT CHEST WO CON INDICATIONS: abnormal chest xray TECHNIQUE: Noncontrast 5 mm thick sections acquired from the pulmonary apices to the posterior costophrenic angles. 1 mm lung window, 5 mm thick coronal and sagittal and 7 mm axial MIP reformats were then acquired. For radiation dose reduction, the following was used: automated exposure control, adjustment of mA and/or kV according to patient size. COMPARISON: [facility], CR, XR CHEST 1V, 09/21/2023, 15:08. [facility], CR, XR CHEST 2V, 03/08/2019, 10:38. [facility], CR, XR CHEST 2V, 03/13/2025, 15:37. Report from CT chest 03/14/2019. FINDINGS: Image quality: Diagnostic. Lower Neck: No enlarged lymph nodes. Thyroid: No thyroid nodules which require sonographic follow up, per consensus guidelines. Axillae: No enlarged lymph nodes. Chest Wall: Unremarkable. Bones: No suspicious osseous lesion. Lungs and Pleura: No pneumothorax or pleural effusions. Interstitial and peripheral reticular thickening. This was reported on the prior CT. Right lung base calcified granuloma. No significant pulmonary nodules identified. No mass. Central airways are clear no honeycombing. 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 Heart size is within normal limits. Three-vessel coronary artery calcifications. No pericardial effusion. Thoracic Vessels: The aorta and pulmonary arteries demonstrate normal size. Mediastinum and Lima: No enlarged lymph nodes. Esophagus: No wall thickening. No hiatal hernia. Small duodenal diverticulum. Upper Abdomen: Visualized upper abdomen solid organs and bowel loops appear normal. IMPRESSION: 1. Interstitial and peripheral reticular thickening. Nonspecific interstitial lung disease. -Comparison with more remote imaging when available is recommended. Consider follow-up high-resolution chest CT in 6-12 months. 2. No suspicious pulmonary nodules. 3. No pleural effusion. No convincing acute airspace opacity. Dictated by: Bc Beck M.D. on 03/29/2025 at 13:25 Approved by: Bc Beck M.D. on 03/29/2025 at 13:37
== END ==
LOC: RESP 14:09
PROVIDERS: PCP Internal Medicine; Referring Provider Internal Medicine; Visit Provider Internal Medicine
DX: R06.09 Other forms of dyspnea (principal); R93.89 Abnormal findings on diagnostic imaging of other specified body structures; J84.9 Interstitial pulmonary disease, unspecified
CPT/HCPCS: 71250

== ENCOUNTER → 2025-07-26 14:44 | Outpatient (CLI) | payer MEDICARE, OTHER, SELFPAY ==
[2025-07-26 17:01] LABS: Hemoglobin A1C% w Est Avg Glu 6.3 % (4.0-6.0)
[2025-07-26 17:19] LABS: Blood Urea Nitrogen 25 mg/dL (9-20); Calcium 8.8 mg/dL (8.4-10.2); Chloride 105 mmol/L (98-107); Estimated Glomerular Filt Rate 34 mL/min (>60); Glucose 150 mg/dL (70-99); HEMOLYSIS < 15 (0-50); Potassium 5.0 mmol/L (3.4-5.1); Sodium 139 mmol/L (137-145)
[2025-07-26 17:58] LABS: Carbon Dioxide 26 mmol/L (22-32)
== END ==
PROVIDERS: PCP Internal Medicine; Referring Provider Internal Medicine; Visit Provider Internal Medicine
DX: E11.21 Type 2 diabetes mellitus with diabetic nephropathy (principal); N18.31 Chronic kidney disease, stage 3a
CPT/HCPCS: 36415; 80048; 83036